=== PATIENT | male | born 1980 | race Hispanic/Latino ===

== ENCOUNTER → 2023-10-23 | Emergency (ER) | payer SELFPAY ==
[~2023-10-23] MED LIST: CEFTRIAXONE 1000 MG/VIAL ONE; METRONIDAZOLE 500mg IVPB 500 MG/100 ML BAG IV ONE; NA CHLORIDE 0.9% 50 ML ONE
[2023-10-23 10:21] LABS: Absolute Eosinophils 0.2 K/uL (0-0.5); Absolute Monocytes 0.8 K/uL (0.1-1.3); Absolute Neutrophil 13.2 K/uL (1.8-8.0); Basophils % 0.3 % (0-1.3); Hematocrit 28.4 % (39.6-49.0); Hemoglobin 9.5 g/dL (13.6-17.9); Lymphocytes % 12.1 % (15.3-44.8); MCH 34.6 pg (27.0-35.0); MCHC 33.6 g/dL (32.0-36.0); MCV 102.8 fL (80-100); MPV 7.2 fL (7.6-11.3); Monocytes % 5.2 % (3.3-12.3); Neutrophils % 81.4 % (41.7-73.7); Platelets 529 thou/uL (152-406); RBC Red Blood Cell Count 2.76 M/uL (4.33-5.43); Red Cell Distribution Width 17.4 % (12.1-15.2)
[2023-10-23 10:26] LABS: PT Prothrombin Time 15.4 SECONDS (9.5-12.5); PTT, Activated Partial Thromb 33.7 SECONDS (24.3-36.9); Protime INR 1.41
[2023-10-23 10:38] LABS: SARS-CoV-2 Antigen CONTROL BLUE LINE VIS/BG OK; SARS-CoV-2 Antigen Rapid Res Negative (Negative)
[2023-10-23 10:50] LABS: Albumin 1.8 g/dL (3.4-5.0); Albumin/Globulin Ratio 0.3 (1.1-1.8); Anion Gap 10.9 mEq/L (5.0-15.0); Bilirubin Total 5.3 mg/dL (0.2-1.0); Globulin 5.4 g/dL (2.3-3.5); Potassium 3.9 mEq/L (3.5-5.1); Protein, Total 7.2 g/dL (6.4-8.2)
[2023-10-23 11:01] LABS: Thyroid Stimulating Hormone 10.5 uIU/mL (0.358-3.740)
--- NOTE | 2023-10-23 11:07 | RAD REPORT ---
EXAM DESCRIPTION: Shahid Single View10/23/2023 10:47 am CLINICAL HISTORY: COUGH COMPARISON: No comparisons TECHNIQUE: Portable AP view of the chest. FINDINGS: The lungs are clear. No pneumothorax or effusion. The cardiomediastinal contours are unre markable. IMPRESSION: No acute cardiopulmonary process.
--- NOTE | 2023-10-23 11:43 | RAD REPORT ---
EXAM DESCRIPTION: CT - Abdomen Pelvis W Contrast - 10/23/2023 11:03 am CLINICAL HISTORY: ABD PAIN COMPARISON: No comparisons TECHNIQUE: Thin cut axial CT imaging of the abdomen and pelvis was performed following intravenous a dministration of 100 mL Isovue 300. Multiplanar reformats were generated and reviewed. All CT scans are performed using dose optimization technique as appropriate and may include automated exposure control or mA/KV adjustment according to patient size. FINDINGS: No suspicious findings in the lung bases. The liver is subjectively enlarged measuring 20 cm in long axis. Parenchymal patchy hypoattenuation w ith patchy pattern of enhancement, however without a focal discrete mass. Small regions of relative h yperenhancement in the periphery and at the liver hilum may represent areas of fatty sparing. Spleen, adrenal glands,, and pancreas show no suspicious findings. Gallbladder shows nonspecific mild perich olecystic fluid and no appreciable gallstones. No findings to suggest intra or extrahepatic biliary d uct dilation. Symmetric renal function is seen with no hydronephrosis or suspicious renal mass. No dilated bowel loops or bowel wall thickening. No free air, free fluid or inflammatory stranding. N o hernia, mass or bulky lymphadenopathy. The urinary bladder is without significant finding. No suspicious bony findings. IMPRESSION: Hepatomegaly patchy hypoattenuation and enhancement pattern, findings which may suggest steatosis with ongoing hepatitis. Please correlate with hepatic lab profile. No other acute intra- abdominal process.
[2023-10-23 11:55] LABS: Hepatitis B Core IgM Nonreactive (Nonreactive); Hepatitis B surface AG Interp. Nonreactive (Nonreactive); Hepatitis C Virus Ab Nonreactive (Nonreactive)
[2023-10-23 11:56] LABS: HBsAG Nonreactive Report Report
--- NOTE | 2023-10-23 12:02 | RAD REPORT ---
EXAM DESCRIPTION: US - Abdomen Exam Limited - 10/23/2023 11:35 am CLINICAL HISTORY: bili abnl, eval biliary martín COMPARISON: Abdomen Pelvis W Contrast dated 10/23/2023 TECHNIQUE: Sonographic grayscale and color flow images of the right upper abdominal quadrant were o btained. FINDINGS: The gallbladder demonstrates no gallstones. No pericholecystic fluid. Mild gallbladder wal l thickening measuring 5 mm. Negative sonographic Victor sign. The common bile duct is normal measuri ng 5 mm. The liver demonstrates diffuse parenchymal hypoattenuation suggesting steatosis. No findings of intra hepatic biliary dilatation. IMPRESSION: Mild gallbladder wall thickening, which is nonspecific given the hepatic findings on CT. No other findings to suggest acute cholecystitis.
--- NOTE | 2023-10-23 12:12 | ER ---
Nurse's Notes [facility] Name: Fredy Payton Age: 43 yrs Sex: Male : 1980 Arrival Date: 10/23/2023 Time: 09:19 Bed 8 Private MD: Diagnosis: Unspecified jaundice;Scleral Icterus Presentation: 10/22 09:30 Chief complaint: Patient states: Generalized weakness, fatigue, bilateral leg pain and ph weakness that has been ongoing. Denies pain, SOB, N/V/D. Coronavirus screen: Vaccine status: Patient reports receiving the 2nd dose of the covid vaccine. Ebola Screen: No symptoms or risks identified at this time. Initial Sepsis Screen: Does the patient meet any 2 criteria? HR > 90 bpm. Does the patient have a suspected source of infection? No. Patient's initial sepsis screen is negative. Risk Assessment: Do you want to hurt yourself or someone else? Patient reports no desire to harm self or others. Onset of symptoms was October 23, 2023. 09:30 Method Of Arrival: Wheelchair ph 09:30 Acuity: ABAD 3 ph Triage Assessment: 09:35 General: Appears in no apparent distress. comfortable, well groomed, Behavior is calm, ph cooperative, appropriate for age. Pain: Denies pain. Neuro: Reports weakness bilateral legs. Stroke Activation: Symptom onset > 6 hours Physician: Stroke Attending; Name: ; Notified At: ; Arrived At: Physician: Chief Stroke Resident; Name: ; Notified At: ; Arrived At: Physician: Stroke Resident; Name: ; Notified At: ; Arrived At: Physician: ED Attending; Name: ; Notified At: ; Arrived At: Physician: ED Resident; Name: ; Notified At: ; Arrived At: Historical: - Allergies: 09:36 No Known Allergies; ll1 - PMHx: 09:36 Hypertensive disorder; ll1 - PSHx: 09:36 None; ll1 - Immunization history:: Adult Immunizations up to date. - Social history:: Smoking status: Patient denies any tobacco usage or history of. Screenin:21 [facility] ED Fall Risk Assessment (Adult) History of falling in the last 3 months, ph including since admission No falls in past 3 months (0 pts) Confusion or Disorientation No (0 pts) Intoxicated or Sedated No (0 pts) Impaired Gait Yes (1 pt) Mobility Assist Device Used No (0 pt) Altered Elimination No (0 pt) Score/Fall Risk Level 0 - 2 = Low Risk Oriented to surroundings, Maintained a safe environment, Assessed \T\ reinforced patient's understanding of fall precautions, Hourly rounding (assess needs \T\ fall precautionary measures) done. Abuse screen: Denies threats or abuse. Denies injuries from another. 10:28 Nutritional screening: No deficits noted. Tuberculosis screening: No symptoms or risk ph factors identified. Assessment: 10:24 General: Appears in no apparent distress. comfortable, well groomed, Behavior is calm, ph cooperative, appropriate for age, Denies fever. Pain: Denies pain. Neuro: Level of Consciousness is awake, alert, obeys commands, Oriented to person, place, time, situation, Manager Of Financial Planning are equal bilaterally Speech is normal, Facial symmetry appears normal, Reports weakness in right leg and left leg. Cardiovascular: Capillary refill < 3 seconds in bilateral fingers Patient's skin is warm and dry. Respiratory: Airway is patent Respiratory effort is even, unlabored, Respiratory pattern is regular, symmetrical, Denies shortness of breath. GI: No signs and/or symptoms were reported involving the gastrointestinal system. EENT: Sclera/Cornea jaundiced. Derm: Skin is dry, Skin is jaundiced, Skin temperature is warm. Musculoskeletal: Circulation, motion, and sensation intact. Range of motion: intact in all extremities. 11:30 Reassessment: Patient appears in no apparent distress at this time. Patient and/or ph family updated on plan of care and expected duration. Pain level reassessed. Patient is alert, oriented x 3, equal unlabored respirations, skin warm/dry/pink. 12:30 Reassessment: Patient appears in no apparent distress at this time. Patient and/or ph family updated on plan of care and expected duration. Pain level reassessed. Patient is alert, oriented x 3, equal unlabored respirations, skin warm/dry/pink. 13:55 Reassessment: Patient appears in no apparent distress at this time. Patient and/or ph family updated on plan of care and expected duration. Pain level reassessed. Patient is alert, oriented x 3, equal unlabored respirations, skin warm/dry/pink. 13:57 Reassessment: Patient appears in no apparent distress at this time. Patient and/or ph family updated on plan of care and expected duration. Pain level reassessed. Patient is alert, oriented x 3, equal unlabored respirations, skin warm/dry/pink. Attempted to call report to [facility], placed on hold > 5 minutes, will call back. 14:28 Reassessment: Patient appears in no apparent distress at this time. Patient and/or ph family updated on plan of care and expected duration. Pain level reassessed. Patient is alert, oriented x 3, equal unlabored respirations, skin warm/dry/pink. Report called to [facility], given to charge nurse. 14:54 Reassessment: Patient appears in no apparent distress at this time. Patient and/or ph family updated on plan of care and expected duration. Pain level reassessed. Patient is alert, oriented x 3, equal unlabored respirations, skin warm/dry/pink. [facility] at bedside, report given to REGINALD Joseph-P. Vital Signs: 09:30 BP 139 / 71; Pulse 114; Resp 18; Temp 98; Pulse Ox 100% on R/A; ph 10:28 BP 132 / 78; Pulse 113; Resp 18; Pulse Ox 100% on R/A; ph 11:15 BP 147 / 102; Pulse 103; Resp 18; Pulse Ox 99% on R/A; ph 12:30 BP 142 / 97; Pulse 110; Resp 18; Pulse Ox 98% on R/A; ph 13:48 BP 144 / 94; Pulse 116; Resp 18; Temp 97.5; Pulse Ox 100% on R/A; ph ED Course: 09:21 Patient arrived in ED. rg4 09:23 Bunny Oconnell MD is Attending Physician. ec2 09:27 Natividad Amor, RN is Primary Nurse. ph 09:36 Arm band placed on Patient placed in an exam room, on a stretcher. ll1 10:10 Initial lab(s) drawn, by me, sent to lab. First set of blood cultures drawn by me, Flu ph and/or RSV swab sent to lab. Strep swab sent to lab. Inserted saline lock: 22 gauge in right antecubital area, using aseptic technique. Blood collected. 10:20 AMMONIA Sent. ph 10:20 T4 Free Sent. ph 10:20 TSH Sent. ph 10:20 CK Sent. ph 10:20 Hep Panel Sent. ph 10:20 Influenza Screen (a \T\ B) Sent. ph 10:20 SARS RAPID Sent. ph 10:20 CBC with Diff Sent. ph 10:20 CMP Sent. ph 10:20 Lactate w/ 2H reflex if indic. Sent. ph 10:20 Protime (+inr) Sent. ph 10:20 Ptt, Activated Sent. ph 10:20 Blood Culture Adult (2) Sent. ph 10:23 Triage completed. ph 10:23 EKG done, by ED staff. aw1 10:27 Patient has correct armband on for positive identification. Bed in low position. Call ph light in reach. Side rails up X 1. Provided Education on: Time for test result, use of call light. Client placed on continuous cardiac and pulse oximetry monitoring. NIBP monitoring applied. lunchroom monitor on. Door closed. Noise minimized. Warm blanket given. Pillow given. PO fluids given. 10:49 Chest Single View XRAY In Process Unspecified. EDMS 11:[address] via stretcher. ph 11:04 CT Abd/Pelvis - IV Contrast Only In Process Unspecified. EDMS 11:18 Patient taken to ultrasound. via wheelchair. ph 11:37 US Abdomen Limited In Process Unspecified. EDMS 12:19 spoke with Alison at [facility] transfer [place]. bc6 13:25 received acceptance for bed at [facility]. Room 935. from alison. bc6 13:30 PO fluids given. ph 13:56 No provider procedures requiring assistance completed. Patient transferred, IV remains ph in place. Administered Medications: 11:14 Drug: Rocephin IV 1 grams IV at calculated rate once; Given slow IV push per pharmacy ph instructions Route: IV; Rate: calculated rate; Site: right antecubital; 11:45 Follow up: Response: No adverse reaction; IV Status: Completed infusion; IV Intake: 50mlph 11:54 Drug: metroNIDAZOLE IVPB 500 mg 100 ml IVPB at 200 ml/hr once over 30 mins Volume: 100 ph ml; Route: IVPB; Rate: 200 ml/hr; Infused Over: 30 mins; Site: right antecubital; 12:30 Follow up: Response: No adverse reaction; IV Status: Completed infusion; IV Intake: ph 100ml Medication: 10:27 VIS not applicable for this client. ph Intake: 11:45 IV: 50ml; Total: 50ml. ph 12:30 IV: 100ml; Total: 150ml. ph Outcome: 12:12 ER care complete, transfer ordered by . ec2 14:55 Transferred by ground EMS [place]. to [facility], Transfer form ph completed. X-rays sent w/ patient. 14:55 Condition: stable 14:55 Instructed on the need for transfer, 14:55 Patient left the ED. ph Signatures: Dispatcher [employer] Natividad Delarosa RN RN ph Garcia, Rubi rg4 Abigail Sheehan RN RN ll1 Soni Mccain bc6 Ayah Champagne aw1 Bunny Oconnell MD MD ec2
--- NOTE | 2023-10-23 12:13 | EDPHYS ---
Physician Documentation [facility] Name: Fredy Payton Age: 43 yrs Sex: Male : 1980 Arrival Date: 10/23/2023 Time: 09:19 Bed 8 Private MD: ED Physician Bunny Oconnell HPI: 10/22 09:45 This 43 yrs old Male presents to ER via Unassigned with complaints of Weakness.ec2 09:45 Patient arrives today for evaluation of generalized weakness. Patient reports that he ec2 has been having issues with weakness for the past several weeks, states that he was recently hospitalized in [facility], states that he is having persistent weakness. Patient reports some cold sweats as well as fevers, no abdominal pain, no vomiting or diarrhea. Patient reports no issues with p.o. intake however does report decreased appetite. He states he was hospitalized in [facility], states that ultimately they did not find an underlying diagnosis to attribute his weakness 2.. Historical: - Allergies: 09:36 No Known Allergies; ll1 - PMHx: 09:36 Hypertensive disorder; ll1 - PSHx: 09:36 None; ll1 - Immunization history:: Adult Immunizations up to date. - Social history:: Smoking status: Patient denies any tobacco usage or history of. ROS: 09:46 Constitutional: as per hpi ec2 Exam: 09:46 Constitutional: GEN: NAD Head: atraumatic Eyes: EOMI, sclera icterus noted Ears: ec2 External ears are normal. CV: regular rate LUNGS: no respiratory distress ABD: non-distended, soft, nontender, no guarding, not rigid SKIN: no evidence of rashes MSK: no evidence of trauma NEURO: moves all extremities equally Vital Signs: 09:30 BP 139 / 71; Pulse 114; Resp 18; Temp 98; Pulse Ox 100% on R/A; ph 10:28 BP 132 / 78; Pulse 113; Resp 18; Pulse Ox 100% on R/A; ph 11:15 BP 147 / 102; Pulse 103; Resp 18; Pulse Ox 99% on R/A; ph 12:30 BP 142 / 97; Pulse 110; Resp 18; Pulse Ox 98% on R/A; ph 13:48 BP 144 / 94; Pulse 116; Resp 18; Temp 97.5; Pulse Ox 100% on R/A; ph MDM: 09:33 Patient medically screened. ec2 09:46 Data reviewed: vital signs. ED course: Patient arrives today for evaluation of ec2 generalized weakness. Examination remarkable for individual with sclericterus noted with a benign abdominal examination. Will obtain lab workup, CT imaging, x-ray. Evaluating for liver pathology, electrolyte disturbances, anemia. . 10:27 ED course: EKG independently reviewed and interpreted by me, shows sinus tachycardia, ec2 rate of 114, no acute ST segment elevations, nonconcerning intervals. 10:31 ED course: CBC shows leukocytosis 16.2. Coagulation profile unremarkable. Patient meet ec2 SIRS criteria, possible intra-abdominal infection, will give the patient antibiotic to cover intra-abdominal process. . 11:20 ED course: TSH appropriately elevated, T4 within normal ranges. Chest x-ray shows no ec2 acute intrathoracic process, CPK within normal ranges. . 11:48 ED course: CT abdomen pelvis shows hepatomegaly, concern for hepatitis. . ec2 12:12 ED course: CT abdomen pelvis shows hepatic steatosis with likely ongoing hepatitis. ec2 Ultrasound shows mild gallbladder wall thickening. Hepatitis panel is negative. Will transfer for GI consultation. Patient require transfer given patient's jaundice as well as bili elevation. . 12:44 ED course: I discussed case with GI interventional [facility], recommended ec2 hepatology consultation.. 13:13 ED course: Discussed case with Dr. Monae, [facility]. Will transfer.. ec2 10/22 09:44 Order name: Blood Culture Adult (2) ec2 10/22 09:44 Order name: CBC with Diff; Complete Time: 10:30 ec2 10/22 09:44 Order name: CMP; Complete Time: 10:52 ec2 10/22 09:44 Order name: Lactate w/ 2H reflex if indic.; Complete Time: 10:51 ec2 10/22 09:44 Order name: Protime (+inr); Complete Time: 10:30 ec2 10/22 09:44 Order name: Ptt, Activated; Complete Time: 10:30 ec2 10/22 09:44 Order name: Urinalysis w/ reflexes ec2 10/22 09:44 Order name: SARS RAPID; Complete Time: 10:51 ec2 10/22 09:44 Order name: Influenza Screen (a \T\ B); Complete Time: 10:51 10/22 09:44 Order name: Hep Panel; Complete Time: 12:00 10/22 09:46 Order name: CK; Complete Time: 11:19 10/22 09:46 Order name: TSH; Complete Time: 11:19 10/22 09:46 Order name: T4 Free; Complete Time: 11:19 10/22 09:46 Order name: AMMONIA; Complete Time: 10:51 10/22 09:44 Order name: Chest Single View XRAY; Complete Time: 11:19 10/22 09:48 Order name: CT Abd/Pelvis - IV Contrast Only; Complete Time: 11:48 10/22 11:05 Order name: US Abdomen Limited; Complete Time: 12:10 10/22 09:44 Order name: EKG; Complete Time: 09:44 10/22 09:44 Order name: Accucheck; Complete Time: 10:20 10/22 09:44 Order name: Cardiac monitoring; Complete Time: 10:20 10/22 09:44 Order name: EKG - Nurse/Tech; Complete Time: 10:20 10/22 09:44 Order name: IV Saline Lock - Large Bore; Complete Time: 10:20 10/22 09:44 Order name: Labs collected and sent; Complete Time: 10:20 10/22 09:44 Order name: O2 Per Protocol; Complete Time: 10:20 10/22 09:44 Order name: O2 Sat Monitoring; Complete Time: 10:20 10/22 09:44 Order name: Vital Signs; Complete Time: 10:20 ec2 Administered Medications: 11:14 Drug: Rocephin IV 1 grams IV at calculated rate once; Given slow IV push per pharmacy ph instructions Route: IV; Rate: calculated rate; Site: right antecubital; 11:45 Follow up: Response: No adverse reaction; IV Status: Completed infusion; IV Intake: 50mlph 11:54 Drug: metroNIDAZOLE IVPB 500 mg 100 ml IVPB at 200 ml/hr once over 30 mins Volume: 100 ph ml; Route: IVPB; Rate: 200 ml/hr; Infused Over: 30 mins; Site: right antecubital; 12:30 Follow up: Response: No adverse reaction; IV Status: Completed infusion; IV Intake: ph 100ml Disposition Summary: 10/23/23 12:12 Transfer Ordered Notes: Transfer Location: Other [facility] ec2 Reason: Higher level of care ec2 Condition: Stable ec2 Problem: an ongoing problem ec2 Symptoms: have improved ec2 Accepting Physician: transferring doc(10/23/23 14:55) ph Diagnosis - Unspecified jaundice ec2 - Scleral Icterus ec2 Discharge Instructions: - Discharge Summary Sheet bc6 Forms: - SBAR form bc6 - Medication Reconciliation Form ec2 Critical care time excluding procedures: 13:14 Critical care time: Bedside Care: 30 minutes, Consultation: 5 minutes. Total time: 35 ec2 minutes Signatures: Dispatcher [employer] Natividad Delarosa RN RN ph Lewis, Lynsay, RN RN 1 Bunny Oconnell MD MD ec2 Corrections: (The following items were deleted from the chart) 14:55 12:12 transferring doc ec2 ph
[2023-10-23 13:17] LABS: Specific Gravity > 1.030 (1.005-1.030); Sqamous Epithelial <5 /HPF (None Seen); Urine Bacteria None Seen /HPF (<20); Urine Bilirubin 1+ (Negative); Urine Blood Negative (Negative); Urine Clarity Clear (Clear); Urine Color Yellow (Yellow); Urine Culture Reflex Order NOT NEEDED; Urine Glucose NEGATIVE (Negative); Urine Ketones NEGATIVE (Negative); Urine Microscopic Reflex YN ORDER UMIC; Urine Nitrite NEGATIVE (Negative); Urine Protein TRACE (Negative); Urine RBC <5 /HPF (None Seen); Urine Urobilinogen 1+ (Normal); Urine WBC <5 /HPF (<5)
[2023-10-23 15:25] VITALS: BP 144/94; TEMP 97.5; O2SAT 100
--- NOTE | 2023-10-24 17:25 | EKG ---
Test Date: 2023-10-23 Test Time: 10:09:49 Director Of Transportation: KATHIE MEASUREMENT RESULTS: Intervals: Rate: 114 CA: 140 QRSD: 80 QT: 352 QTc: 485 [place]: P: 41 CA: 140 QRS: 18 T: 44 INTERPRETIVE STATEMENTS: Sinus tachycardia Nonspecific T wave abnormality Abnormal ECG No previous ECG available for comparison Electronically Signed On 10-24-23 17:20:58 CDT by Noah Concepcion
== END ==
LOC: ER 09:19
DX: R17 Unspecified jaundice (principal); Z11.52 Encounter for screening for COVID-19; I10 Essential (primary) hypertension
CPT/HCPCS: 36415; 71045; 74177; 76705; 80053; 80074; 81001; 82140; 82550; 83605; 84439; 84443; 85025; 85610; 85730; 87040; 87804; 87811; 93005; 96365; 96367; 99285; J0696; Q9967